=== PATIENT | female | born 1995 | race American Indian/Alaskan Native ===

== ENCOUNTER 2016-12-07 19:09 | Outpatient (CLI) | payer OTHER | END 2016-12-07 21:39 | disposition home or self-care (01) | LOC: TRG 19:09 | PROVIDERS: ATTEND Obstetrics & Gynecology | DX: O26.893 Other specified pregnancy related conditions, third trimester (principal); R10.2 Pelvic and perineal pain; Z3A.36 36 weeks gestation of pregnancy ==

== ENCOUNTER 2017-01-03 10:53 | Inpatient (IN) | payer OTHER ==
[2017-01-03] MEDS ORDERED: LACTATED RINGERS 1,000 ML ONE (15:59)
[2017-01-03 17:55] LABS: Hematocrit 45.8 % (30.3-42.9); Hemoglobin 15.6 gm/dl (10.1-14.3); Mean Corpuscular HGB Conc 34 % (30-34); Mean Corpuscular Hemoglobin 30 pg (28-32); Mean Corpuscular Volume 88 fl (79-97); Platelet Count 175 K/mm3 (140-440); Red Blood Count 5.23 M/mm3 (3.65-5.03); Red Cell Distribution Width 14.2 % (13.2-15.2); White Blood Count 8.6 K/mm3 (4.5-11.0)
[2017-01-03] MEDS ORDERED: LACTATED RINGERS 1,000 ML IV SCH ×2 (18:00→20:00)
[2017-01-03] MEDS ORDERED: SUBLIMAZE IV PRN (19:17)
[2017-01-03] MEDS ORDERED: XYLOCAINE 2% INFILTRATI ONE ×2 (19:17→22:07)
[2017-01-03] MEDS ORDERED: NACL 0.9% 1000 ML 1,000 ML ONE (19:17)
[2017-01-03] MEDS ORDERED: ZOFRAN IV PRN ×2 (19:17→22:21)
[2017-01-03] MEDS ORDERED: ePHEDrine SULFATE IV PRN (19:17)
--- NOTE | 2017-01-03 19:26 | History and Physical Report ---
History of Present Illness Date of examination: 01/03/17 Date of admission: 01/03/17 10:54 Chief complaint: Painful contractions History of present illness: 21-year-old 001 at 40+2 weeks presents via EMS with contractions, she is a [facility] patient. Patient seen in triage and noted to have variable decelerations she was therefore admitted for delivery. course has been unremarkable per patient She is 4/80/-2 station Past History Past Medical History: no pertinent history Past Surgical History: no surgical history Social history: single, full code. denies: smoking, alcohol abuse, prescription drug abuse, IV drug use - Obstetrical History Expected Date of Delivery: 01/01/17 Actual Gestation: 40 Week(s) 2 Day(s) : 2 Medications and Allergies Allergies Allergy/AdvReac Type Severity Reaction Status Date / Time penicillin Allergy Severe Unknown Verified 03/02/15 14:43 Home Medications Medication Instructions Recorded Confirmed Last Taken Type Pnv with Ca,No.72/Iron/FA 1 each PO DAILY 04/13/15 04/13/15 04/11/15 09:00 History [ Plus Multivitamin Tab] Active Meds: Active Medications Ephedrine Sulfate (Ephedrine Sulfate) 10 mg IV Q2M PRN PRN Reason: Hypotension Stop: 01/03/17 19:22 Fentanyl (Sublimaze) 100 mcg IV Q2H PRN PRN Reason: Labor Pain Lactated Ringer's (Lactated Ringers) 1,000 mls @ 125 mls/hr IV DIRECT AARON Lactated Ringer's (Lactated Ringers) 1,000 mls @ 125 mls/hr IV DIRECT AARON Oxytocin/Sodium Chloride (Pitocin/Ns 20 Unit/1000ml Drip) 20 units in 1,000 mls @ 125 mls/hr IV DIRECT AARON Oxytocin/Sodium Chloride (Pitocin/Ns 30 Unit/500ml) 30 units in 500 mls @ 1 mls /hr IV TITR AARON; 1 MILLIUNITS/MIN PRN Reason: Protocol Lidocaine (Xylocaine 2%) 20 ml INFILTRATI ONCE ONE Stop: 01/03/17 19:18 Mineral Oil (Mineral Oil) 30 ml PO QHS PRN PRN Reason: Constipation Ondansetron HCl (Zofran) 4 mg IV Q8H PRN PRN Reason: Nausea And Vomiting Terbutaline Sulfate (Brethine) 0.25 mg SUB-Q ONCE PRN PRN Reason: Hyperstimulation/Hypertonicity Stop: 01/03/17 19:18 Terbutaline Sulfate (Brethine) 0.25 mg IVP ONCE PRN PRN Reason: Hyperstimulation/Hypertonicity Stop: 01/03/17 19:18 Review of Systems Constitutional: no fever, no chills, no sweats, no weakness Cardiovascular: no chest pain, no orthopnea, no syncope, no lightheadedness, no shortness of breath, no dyspnea on exertion, no high blood pressure Respiratory: no cough, no shortness of breath, no dyspnea on exertion, no respiratory infections Gastrointestinal: no abdominal pain, no nausea, no vomiting Genitourinary: contractions, no vaginal bleeding, no vaginal discharge, no leakage of fluid - Vital Signs Vital signs: Vital Signs Temp Resp 98.1 F 18 01/03/17 11:21 01/03/17 11:21 Temp Pulse Resp BP Pulse Ox 98.1 F 89 18 118/66 01/03/17 11:21 01/03/17 19:13 01/03/17 11:21 01/03/17 19:13 - Physical Exam Cardiovascular: Regular rate, Normal S1, Normal S2 Lungs: Positive: Clear to auscultation, Normal air movement Abdomen: Positive: normal appearance, soft. Negative: distention, tenderness, guarding, rigidity Genitourinary (Female): Positive: normal external genitalia Vulva: both: normal Uterus: Positive: enlarged (EFW ~ 3400). Negative: tender Adnexa: both: normal Extremities: Positive: normal - Obstetrical FHR: category 2 Cervical Dilatation: 4 Cervical Effacement Percentage: 60 station: -2 Results Result Diagrams: 01/03/17 Unknown Abnormal lab results 01/03/17 Range/Units Unknown RBC 5.23 H (3.65-5.03) M/mm3 Hgb 15.6 H (10.1-14.3) gm/dl Hct 45.8 H (30.3-42.9) % All other labs normal. Assessment and Plan A: 21-year-old 001 at 40+2 weeks -Cat 2 tracing P: -Admit -Obtain routine labs -Will AROM and start amnioinfusion -Anticipate normal vaginal delivery - Patient Problems (1) 40 weeks gestation of Current Visit: Yes Status: Acute
[2017-01-03] MEDS ORDERED: BRETHINE SUB-Q PRN (19:30)
[2017-01-03] MEDS ORDERED: BRETHINE IVP PRN (19:35)
[2017-01-03] MEDS ORDERED: NACL 0.9% 1000 ML 1,000 ML VG SCH (20:00)
[2017-01-03] MEDS ORDERED: PITOCin/NS 30 UNIT/500ML 30 UNITS/500 ML BAG IV SCH (20:00)
[2017-01-03] MEDS ORDERED: PITOCin/NS 20 UNIT/1000ML DRIP 20 UNITS/1,000 ML BAG IV SCH (20:00)
[2017-01-03 20:24] LABS: Hematocrit 38.6 % (30.3-42.9); Hemoglobin 12.8 gm/dl (10.1-14.3); Mean Corpuscular HGB Conc 33 % (30-34); Mean Corpuscular Hemoglobin 29 pg (28-32); Mean Corpuscular Volume 88 fl (79-97); Platelet Count 176 K/mm3 (140-440); Red Cell Distribution Width 14.1 % (13.2-15.2); White Blood Count 8.8 K/mm3 (4.5-11.0)
--- NOTE | 2017-01-03 21:20 | Progress Note ---
Assessment and Plan A: 21-year-old 001 at 40+2 weeks -Cat 2 tracing - now 6 cm P: -Continue present care -Anticipate normal vaginal delivery - Patient Problems (1) 40 weeks gestation of Current Visit: Yes Status: Acute Subjective - Subjective Date of service: 01/03/17 Interval history: Patient now with occasional variable decelerations, moderate variability and accelerations. She is making cervical change, she is 6 cm -2 station Patient reports: new complaints, loss of fluid, movement normal, contractions, no vaginal bleeding Objective - Vital Signs Vital Signs: Vital Signs - 12hr 01/03/17 01/03/17 01/03/17 11:21 11:24 11:54 Temperature 98.1 F Pulse Rate 94 H 90 Respiratory 18 Rate Blood Pressure 119/81 115/70 01/03/17 01/03/17 01/03/17 12:24 12:41 16:44 Temperature Pulse Rate 90 86 Respiratory Rate Blood Pressure 120/105 119/71 116/68 01/03/17 01/03/17 19:13 19:21 Temperature 98.7 F Pulse Rate 89 Respiratory 20 Rate Blood Pressure 118/66 - Exam FHR: category 2 (patient with moderate variability, occasional variable Decels and accelerations) Cervical Dilatation: 6 station: -2 - Labs Labs: Abnormal Labs 01/03/17 Unknown RBC 5.23 H Hgb 15.6 H Hct 45.8 H Laboratory Results - last 24 hr 01/03/17 01/03/17 01/03/17 16:44 19:55 Unknown WBC 8.8 8.6 RBC 4.40 5.23 H Hgb 12.8 15.6 H Hct 38.6 D 45.8 H MCV 88 88 MCH 29 30 MCHC 33 34 RDW 14.1 14.2 Plt Count 176 175 Blood Type O POSITIVE Antibody Screen TNR VINH Antibody Screen Negative
[2017-01-03] MEDS ORDERED: MINERAL OIL PO PRN (22:00)
--- NOTE | 2017-01-03 22:19 | Procedure Note ---
OB Delivery Note - Delivery Date of Delivery: 01/03/17 Surgeon: TROY AGUILERA Estimated blood loss: 200cc - Vaginal Delivery presentation: vertex Delivery position: OA Intrapartum events: mult.variable deceleratio Delivery induction: none Delivery augmentation: rupture of membranes, pitocin Delivery monitor: external FHT, external uterine Route of delivery: Delivery placenta: spontaneous Delivery cord: 3 umbilical vessels Episiotomy: none Delivery laceration: 2nd degree Delivery repair: vicryl Anesthesia: local - A at 1 minute: 8 at 5 minutes: 9 Infant Gender: Female (Del @ 22:01, weight is 6#7 or 2917 g)
[2017-01-03] MEDS ORDERED: LANSINOH TP PRN ×2 (22:21)
[2017-01-03] MEDS ORDERED: BENADRYL PO PRN (22:21)
[2017-01-03] MEDS ORDERED: MILK OF MAGNESIA PO PRN (22:21)
[2017-01-03] MEDS ORDERED: PHENERGAN PO PRN (22:21)
[2017-01-03] MEDS ORDERED: PHENERGAN PR PRN (22:21)
[2017-01-03] MEDS ORDERED: TUCKS PAD TP PRN (22:21)
[2017-01-03] MEDS ORDERED: NORCO 5/325 PO PRN (22:21)
[2017-01-03] MEDS ORDERED: DULCOLAX PR PRN (22:21)
[2017-01-03] MEDS ORDERED: TYLENOL PO PRN (22:21)
[2017-01-03] MEDS: MOTRIN PO SCH (22:52)
[2017-01-03] MEDS ORDERED: SODIUM CHLORIDE FLUSH SYRINGE 10 ML IV PRN (23:00)
[2017-01-03] MEDS: SENOKOT S PO SCH (23:47)
[2017-01-04] MEDS: MOTRIN PO SCH ×4 (05:40→23:33)
--- NOTE | 2017-01-04 08:19 | Ultrasound Report ---
ULTRASOUND OB LIMITED History: well being Technique: Transabdominal ultrasound with Doppler interrogation. Gestation: Single Position: Cephalic Amniotic Fluid: Normal QUIN = 9.9 cm Heart Rate: 124 BPM
--- NOTE | 2017-01-04 08:19 | Ultrasound Report ---
ULTRASOUND BIOPHYSICAL PROFILE: History: well being Technique: Transabdominal ultrasound with Doppler interrogation. 2 - breathing movements 2 - movements 2 - posture and tone 2 - Qualitative amniotic fluid volume 8 - TOTAL SCORE OF POSSIBLE 8 Heart Rate (bpm) 132
[2017-01-04] MEDS: SENOKOT S PO SCH ×2 (09:30→22:16)
[2017-01-04] MEDS: FEOSOL PO SCH ×2 (09:30→22:16)
[2017-01-04] MEDS ORDERED: PRENATAL VITAMIN PO SCH (10:00)
[2017-01-04 12:39] LABS: Hematocrit 36.6 % (30.3-42.9); Hemoglobin 12.4 gm/dl (10.1-14.3)
--- NOTE | 2017-01-04 13:08 | Progress Note ---
Assessment and Plan A: PP Day #1 Stable P: Follow Routine Orders Depo Provera prior to discharge D/C home in the AM RTO in 6 Weeks Subjective - Subjective Date of service: 01/04/17 Patient reports: appetite normal, voiding normally, pain well controlled, flatus , ambulating normally [place]: in NICU Objective - Vital Signs Latest vital signs: Vital Signs Temp Pulse Resp BP BP Pulse Ox 01/04/17 08:22 98.0 F 18 106/59 01/04/17 04:05 98.2 F 81 20 112/64 01/03/17 23:45 98.5 F 90 20 115/78 01/03/17 23:22 90 100 01/03/17 23:19 81 126/67 01/03/17 23:10 97.7 F 20 01/03/17 23:02 89 140/68 01/03/17 22:59 93 H 151/71 01/03/17 22:52 18 01/03/17 22:44 85 130/80 01/03/17 22:29 80 132/67 01/03/17 22:14 83 130/68 01/03/17 21:58 84 99 01/03/17 21:57 86 138/68 01/03/17 21:53 75 99 01/03/17 21:48 81 100 01/03/17 21:43 81 100 01/03/17 21:41 22 01/03/17 21:38 71 85 01/03/17 21:33 89 100 01/03/17 21:32 88 01/03/17 19:21 98.7 F 20 01/03/17 19:13 89 118/66 01/03/17 16:44 86 116/68 Intake and Output 01/03/17 01/04/17 01/04/17 22:59 06:59 14:59 Intake Total 360 Output Total 1000 Balance -640 Intake: Oral 360 Output: Urine 1000 Void 1000 Other: Total, Intake Amount 120 Total, Output Amount 600 # Voids Void 2 Estimated Blood Loss 200 - Exam Breasts: Present: normal Cardiovascular: Present: Regular rate Lungs: Present: Clear to auscultation, Normal air movement Abdomen: Present: normal appearance, soft, normal bowel sounds Vulva: right: condyloma Uterus: Present: normal, firm, fundal height below umbilicus Extremities: Present: normal - Labs Labs: Abnormal lab results 01/03/17 Range/Units Unknown RBC 5.23 H (3.65-5.03) M/mm3 Hgb 15.6 H (10.1-14.3) gm/dl Hct 45.8 H (30.3-42.9) %
--- NOTE | 2017-01-04 13:10 | Discharge Summary ---
Providers - Providers Date of Admission: 01/03/17 10:54 Date of discharge: 01/05/17 Attending physician: AMBREEN DIAZ MD Primary care physician: AMBREEN DIAZ MD Hospitalization Reason for admission: observation Delivery: Episiotomy: none Laceration: 2nd degree Other procedures: none complications: none Discharge diagnosis: IUP at term delivered baby: female Condition at discharge: Good Disposition: DC-01 TO HOME OR SELFCARE Plan - Discharge Medications Prescriptions: HYDROcodone/APAP 5-325 [[place] 5/325] 1 each PO Q6HR PRN #7 tablet PRN Reason: Pain Ibuprofen [Motrin 600 MG tab] 600 mg PO Q8H PRN #30 tablet PRN Reason: Pain Multivitamin with Iron [Multivitamins with Iron] 1 each PO DAILY #30 tablet - Provider Discharge Summary Activity: routine, no sex for 6 weeks, no heavy lifting 4 weeks, no strenuous exercise Diet: routine Instructions: routine Additional instructions: [] Smoking cessation referral if applicable(refer to patient education folder for contact #) [] Refer to [facility]'s [facility] Booklet Call your doctor immediately for: * Fever > 100.5 * Heavy vaginal bleeding ( >1 pad per hour) * Severe persistent headache * Shortness of breath * Reddened, hot, painful area to leg or breast * Drainage or odor from incision. * Keep incision clean and dry at all times and follow doctor's instructions regarding bathing/showering - Follow up plan Follow up: AMBREEN DIAZ MD [Primary Care Provider] - 6 Weeks
[2017-01-04] MEDS ORDERED: DEPO-PROVERA (CONTRACEPTION) IM NR (13:30)
[2017-01-04] MEDS: COLACE PO SCH ×2 (17:39→22:17)
[2017-01-05] MEDS: MOTRIN PO SCH (05:52)
[2017-01-05 11:26] VITALS: BP 107/68
== END 2017-01-05 10:30 | disposition home or self-care (01) | DRG 775 ==
LOC: TRG 10:53 → LD 10:54 → OB 23:40
PROVIDERS: ADMIT Obstetrics & Gynecology; ATTEND Obstetrics & Gynecology
PROC: 10E0XZZ Delivery of Products of Conception, External Approach (ICD-10-PCS; principal; 2017-01-03)
PROC: 0KQM0ZZ Repair Perineum Muscle, Open Approach (ICD-10-PCS; 2017-01-03)
DX: O76 Abnormality in fetal heart rate and rhythm complicating labor and delivery (principal); O70.1 Second degree perineal laceration during delivery; Z3A.40 40 weeks gestation of pregnancy; Z37.0 Single live birth; Z88.0 Allergy status to penicillin
CPT/HCPCS: 36415; 76815; 76819; 85014; 85018; 85027; 86850; 86900; 86901; J2590; J3010; J7030; J7120

== ENCOUNTER 2017-04-22 02:59 | Emergency (ER) | payer SELFPAY ==
[2017-04-22 06:03] LABS: Bilirubin,Urine NEG (Negative); Blood,Urine NEG (Negative); Color,Urine Straw (Yellow); Nitrite,Urine NEG (Negative); Protein,Urine <15 mg/dL mg/dL (Negative); WBC,Urine < 1.0 /HPF (0.0-6.0)
[2017-04-22 06:04] LABS: HCG Qualitative,Urine Negative (Negative)
[2017-04-22 13:02] LABS: Basophils % (Auto) 0.7 % (0.0-1.8); Eosinophils # (Auto) 0.1 K/mm3 (0.0-0.4); Eosinophils % (Auto) 1.8 % (0.0-4.3); Hematocrit 36.3 % (30.3-42.9); Hemoglobin 11.8 gm/dl (10.1-14.3); Lymphocytes # (Auto) 2.1 K/mm3 (1.2-5.4); Lymphocytes % (Auto) 35.4 % (13.4-35.0); Mean Corpuscular HGB Conc 33 % (30-34); Mean Corpuscular Hemoglobin 28 pg (28-32); Mean Corpuscular Volume 85 fl (79-97); Monocytes # (Auto) 0.3 K/mm3 (0.0-0.8); Monocytes % (Auto) 5.6 % (0.0-7.3); Platelet Count 224 K/mm3 (140-440); Red Blood Count 4.28 M/mm3 (3.65-5.03); Red Cell Distribution Width 14.4 % (13.2-15.2)
[2017-04-22 13:08] LABS: BUN/Creatinine Ratio 20; Blood Urea Nitrogen 12 mg/dL (7-17); Calcium 8.8 mg/dL (8.4-10.2); Hemolysis Index 6; Lipase 27 units/L (13-60)
--- NOTE | 2017-04-22 13:25 | Emergency Department Report ---
ED Abdominal Pain HPI - General Chief Complaint: Abdominal Pain Stated Complaint: ABD PAIN Time Seen by Provider: 04/22/17 12:25 Source: patient Mode of arrival: Ambulatory Limitations: No Limitations - History of Present Illness Initial Comments: 21F PMH Asthma p/w c/o 3 months of upper abd pain , intermittent. States pain is intermittent and comes and goes no association with eating, visibly pointing to her epigastric region above the umbilicus. Patient denies fevers chills nausea vomiting dysuria or vaginal discharge or hematuria flank pain. Patient is concerned that she may be . Patient is awake alert and oriented 3 not in acute distress fully lucid and ambulatory conversant. Accompanied by grandmother at bedside. She states she has not followed up as an outpatient with [facility] or primary care due to insurance issues. Patient states she primarily came today because she wants a test MD Complaint: abdominal pain Onset/Timin -: month(s) Location: periumbilical Migration to: periumbilical Severity: moderate Consistency: constant Improves With: nothing Worsens With: nothing - Related Data Home Medications Medication Instructions Recorded Confirmed Last Taken Pnv with Ca,No.72/Iron/FA 1 each PO DAILY 04/13/15 01/03/17 3 Days Ago [ Plus Multivitamin Tab] ~12/31/16 Previous Rx's Medication Instructions Recorded Last Taken Type HYDROcodone/APAP 5-325 [[place] 1 each PO Q6HR PRN #7 tablet 01/03/17 Unknown Rx 5/325] Ibuprofen [Motrin 600 MG tab] 600 mg PO Q8H PRN #30 tablet 01/03/17 Unknown Rx Multivitamin with Iron 1 each PO DAILY #30 tablet 01/03/17 Unknown Rx [Multivitamins with Iron] Acetaminophen [Acetaminophen TAB] 500 mg PO Q6HR PRN #30 tablet 04/22/17 Unknown Rx Famotidine [Pepcid] 20 mg PO BID PRN #30 tablet 04/22/17 Unknown Rx Allergies Allergy/AdvReac Type Severity Reaction Status Date / Time penicillin Allergy Severe Unknown Verified 03/02/15 14:43 ED Review of Systems ROS: Stated complaint: ABD PAIN Other details as noted in HPI Constitutional: denies: chills, fever Eyes: denies: eye pain, eye discharge, vision change ENT: denies: ear pain, throat pain Respiratory: denies: cough, shortness of breath, wheezing Cardiovascular: denies: chest pain, palpitations Endocrine: no symptoms reported Gastrointestinal: denies: abdominal pain, nausea, diarrhea Genitourinary: denies: urgency, dysuria, discharge Musculoskeletal: denies: back pain, joint swelling, arthralgia Skin: denies: rash, lesions Neurological: denies: headache, weakness, paresthesias Psychiatric: denies: anxiety, depression Hematological/Lymphatic: denies: easy bleeding, easy bruising ED Past Medical Hx - Past Medical History Hx Hypertension: No Hx Congestive Heart Failure: No Hx Diabetes: No Hx Deep Vein Thrombosis: No Hx Renal Disease: No Hx Sickle Cell Disease: No Hx Seizures: No Hx Asthma: No Hx COPD: No Hx HIV: No - Surgical History Past Surgical History?: No Additional Surgical History: left foot - Social History Smoking Status: Current Every Day Smoker Substance Use Type: None - Medications Home Medications: Home Medications Medication Instructions Recorded Confirmed Last Taken Type Pnv with Ca,No.72/Iron/FA 1 each PO DAILY 04/13/15 01/03/17 3 Days Ago History [ Plus Multivitamin Tab] ~12/31/16 HYDROcodone/APAP 5-325 [[place] 1 each PO Q6HR PRN #7 tablet 01/03/17 Unknown Rx 5/325] Ibuprofen [Motrin 600 MG tab] 600 mg PO Q8H PRN #30 tablet 01/03/17 Unknown Rx Multivitamin with Iron 1 each PO DAILY #30 tablet 01/03/17 Unknown Rx [Multivitamins with Iron] Acetaminophen [Acetaminophen TAB] 500 mg PO Q6HR PRN #30 tablet 04/22/17 Unknown Rx Famotidine [Pepcid] 20 mg PO BID PRN #30 tablet 04/22/17 Unknown Rx ED Physical Exam - General Limitations: No Limitations General appearance: alert, in no apparent distress - Head Head exam: Present: atraumatic, normocephalic - Eye Eye exam: Present: normal appearance, PERRL, EOMI - ENT ENT exam: Present: mucous membranes moist - Neck Neck exam: Present: normal inspection, full ROM - Respiratory Respiratory exam: Present: normal lung sounds bilaterally. Absent: respiratory distress - Cardiovascular Cardiovascular Exam: Present: regular rate, normal rhythm. Absent: systolic murmur, diastolic murmur, rubs, gallop - GI/Abdominal GI/Abdominal exam: Present: soft (abdomen soft nontender nondistended on clinical exam no tenderness at McBurney's point no flank tenderness or CVA tenderness on exam), normal bowel sounds - Extremities Exam Extremities exam: Present: normal inspection - Back Exam Back exam: Present: normal inspection - Neurological Exam Neurological exam: Present: alert, oriented X3, CN II-XII intact, normal gait - Psychiatric Psychiatric exam: Present: normal affect, normal mood - Skin Skin exam: Present: warm, dry, intact, normal color. Absent: rash ED Course Vital Signs 04/22/17 04:19 Temperature 98.7 F Pulse Rate 62 Respiratory 18 Rate Blood Pressure 131/68 [Left] ED Medical Decision Making - Lab Data Result diagrams: 04/22/17 12:39 04/22/17 12:39 - Medical Decision Making A/P: Chronic upper abdominal pain, concern for , possible GERD 1-antacids, Tylenol when necessary 2-labs unremarkable, patient is not 3-follow-up with DENTAL SECRETARY Critical care attestation.: If time is entered above; I have spent that time in minutes in the direct care of this critically ill patient, excluding procedure time. ED Disposition Clinical Impression: test negative Disposition: DC-01 TO HOME OR SELFCARE Is pt being admited?: No Does the pt Need Aspirin: No Condition: Stable Instructions: Abdominal Pain (ED) Prescriptions: Acetaminophen [Acetaminophen TAB] 500 mg PO Q6HR PRN #30 tablet PRN Reason: Pain Famotidine [Pepcid] 20 mg PO BID PRN #30 tablet PRN Reason: Indigestion Referrals: [facility] [Outside] - 3-5 Days [facility] [Outside] - 3-5 Days Forms: Accompanied Note, Work/School Release Form(ED) Time of Disposition: 13:27
[2017-04-22 13:40] VITALS: BP 123/74
== END 2017-04-22 13:40 | disposition home or self-care (01) ==
LOC: ED 02:59
DX: R10.10 Upper abdominal pain, unspecified (principal); F17.200 Nicotine dependence, unspecified, uncomplicated; Z88.0 Allergy status to penicillin
CPT/HCPCS: 36415; 80048; 81001; 81025; 82140; 82150; 83690; 85025; 99283

== ENCOUNTER 2018-04-02 14:09 | Emergency (ER) | payer OTHER ==
[2018-04-02 14:20] VITALS: BP 106/78
[2018-04-02] MEDS ORDERED: XYLOCAINE 2% INFILTRATI ONE (16:00)
[2018-04-02] MEDS ORDERED: ULTRAM PO ONE (16:00)
--- NOTE | 2018-04-02 16:00 | Emergency Department Report ---
Abscess Boil HPI - HPI Chief Complaint: Skin/Abscess/Foreign Body Stated Complaint: UNDERARM PAIN/EXTREME Time Seen by Provider: 04/02/18 15:55 Duration: 3 Days Location: Upper Extremity (left axillary) Severity: Severe History: Yes Pain, Yes Previous History, No Fever, No Purulent Drainage, No Numbness, No Foreign Body, No Insect Bite HPI: This is a 22-year-old female who presents with a painful nodule to the left axilla for 3 days. Patient states she is applying Epsom salt, alcohol, and warm compresses with no improvement pain or swelling. She reports a past history of abscess to left axilla. Patient states he usually calm and go never requiring drainage. Past medical history of hyperglycemia. She denies insect bite, fever, drainage, chest pain, shortness of breath, or recent injury. Home Medications: Home Medications Medication Instructions Recorded Confirmed Last Taken Pnv with Ca,No.72/Iron/FA 1 each PO DAILY 04/13/15 01/03/17 3 Days Ago [ Plus Multivitamin Tab] ~12/31/16 Previous Rx's Medication Instructions Recorded Last Taken Type HYDROcodone/APAP 5-325 [[place] 1 each PO Q6HR PRN #7 tablet 01/03/17 Unknown Rx 5/325] Multivitamin with Iron 1 each PO DAILY #30 tablet 01/03/17 Unknown Rx [Multivitamins with Iron] Acetaminophen [Acetaminophen TAB] 500 mg PO Q6HR PRN #30 tablet 04/22/17 Unknown Rx Famotidine [Pepcid] 20 mg PO BID PRN #30 tablet 04/22/17 Unknown Rx Triamcinolone Acetonide 15 gm TP TID #15 oint...g. 02/15/18 Unknown Rx [Triamcinolone Acetonide Oint 0.5%] Ibuprofen [Motrin 600 MG tab] 600 mg PO Q8H PRN #30 tablet 03/25/18 Unknown Rx guaiFENesin [Robitussin] 200 mg PO Q6HR #20 tablet 03/25/18 Unknown Rx Ibuprofen [Motrin 800 MG tab] 800 mg PO Q8HR PRN #12 tablet 04/02/18 Unknown Rx Sulfamethoxazole/Trimethoprim 1 each PO BID #14 tablet 04/02/18 Unknown Rx [Bactrim DS TAB] Allergies/Adverse Reactions: Allergies Allergy/AdvReac Type Severity Reaction Status Date / Time penicillin Allergy Severe Unknown Verified 03/02/15 14:43 ED Review of Systems ROS: Stated complaint: UNDERARM PAIN/EXTREME Other details as noted in HPI Constitutional: denies: chills, fever Respiratory: denies: cough, shortness of breath, wheezing Cardiovascular: denies: chest pain, palpitations Gastrointestinal: denies: abdominal pain, nausea, diarrhea Skin: lesions (abscess to the left axilla). denies: rash Neurological: denies: headache, weakness, paresthesias Psychiatric: denies: anxiety, depression ED Past Medical Hx - Past Medical History Previous Medical History?: No Hx Hypertension: No Hx Congestive Heart Failure: No Hx Diabetes: No Hx Deep Vein Thrombosis: No Hx Renal Disease: No Hx Sickle Cell Disease: No Hx Seizures: No Hx Asthma: No Hx COPD: No Hx HIV: No Additional medical history: hyperglycemia - Surgical History Additional Surgical History: left foot - Social History Smoking Status: Current Every Day Smoker Substance Use Type: None - Medications Home Medications: Home Medications Medication Instructions Recorded Confirmed Last Taken Type Pnv with Ca,No.72/Iron/FA 1 each PO DAILY 04/13/15 01/03/17 3 Days Ago History [ Plus Multivitamin Tab] ~12/31/16 HYDROcodone/APAP 5-325 [[place] 1 each PO Q6HR PRN #7 tablet 01/03/17 Unknown Rx 5/325] Multivitamin with Iron 1 each PO DAILY #30 tablet 01/03/17 Unknown Rx [Multivitamins with Iron] Acetaminophen [Acetaminophen TAB] 500 mg PO Q6HR PRN #30 tablet 04/22/17 Unknown Rx Famotidine [Pepcid] 20 mg PO BID PRN #30 tablet 04/22/17 Unknown Rx Triamcinolone Acetonide 15 gm TP TID #15 oint...g. 02/15/18 Unknown Rx [Triamcinolone Acetonide Oint 0.5%] Ibuprofen [Motrin 600 MG tab] 600 mg PO Q8H PRN #30 tablet 03/25/18 Unknown Rx guaiFENesin [Robitussin] 200 mg PO Q6HR #20 tablet 03/25/18 Unknown Rx Ibuprofen [Motrin 800 MG tab] 800 mg PO Q8HR PRN #12 tablet 04/02/18 Unknown Rx Sulfamethoxazole/Trimethoprim 1 each PO BID #14 tablet 04/02/18 Unknown Rx [Bactrim DS TAB] ED Abscess Boil Physical Exam - Exam General: Vital signs noted. No distress. Alert and acting appropriately. Front/Back of Body, Lg (Color): 1 - 2 cm erythematous nodule to left axilla, tenderness, fluctuant, no surrounding cellulitis or drainage. Size: 2 cm Exam: Yes Tenderness, Yes Fluctuance, Yes Normal Neurologic Exam, Yes Normal Circulation, No Surrounding Cellulites/Erythema, No Lymphangitis, No Crepitation, No Heart Murmur I & D Note - I & D Note I & D Note: The area was prepared and draped in the usual, sterile manner. The site was anesthetized with 2% lidocaine without epinephrine. A linear incision along the local skin lines was made and the purulent material expressed. The abcess was explored thoroughly and sequestered pockets were opened. Bleeding was minimal. Packing: idodoform. Followup: The patient tolerated the procedure well without complications. Standard post-procedure care was explained and return precautions are given. ED Course Vital Signs 04/02/18 14:17 Temperature 98.2 F Pulse Rate 80 Respiratory 16 Rate Blood Pressure 106/78 O2 Sat by Pulse 100 Oximetry Critical care attestation.: If time is entered above; I have spent that time in minutes in the direct care of this critically ill patient, excluding procedure time. ED Medical Decision Making - Medical Decision Making This is a 22 y.o. female that presents with a painful abscess to left axilla for 3 days. Past history of prior abscess to left axilla. Patient is stable and examined by me. Physical assessment of 2 cm fluctuance nodule to left axilla. No acute signs of distress noted. Given tramadol 50 mg po once in ER. I&D refer to note. Discussed plan to start bactrim DS and ibuprofen with patient. Educated patient and spouse on follow up plan to have packing removed and wound reassessed in 2-3 days. Patient agrees to ED plan of care. Discharged home and follow up with PCP in 2-3 days. ED Disposition Clinical Impression: Abscess of axilla, left Disposition: DC-01 TO HOME OR SELFCARE Is pt being admited?: No Does the pt Need Aspirin: No Condition: Stable Instructions: Abscess Incision and Drainage (ED), Abscess (ED) Additional Instructions: Keep packing in place for 2-3 days. Return to ER or f/u with PCP to have packing removed and wound reassessed. Complete full round of bactrim DS antibiotic as prescribed. A drink alcohol while taking antibiotics and for 24 hours of completion. Follow up with PCP or ER in 2-3 days. Return to ER if foul smelling discharge, swelling, or severe pain to wound. Prescriptions: Ibuprofen [Motrin 800 MG tab] 800 mg PO Q8HR PRN #12 tablet PRN Reason: Pain , Severe (7-10) Sulfamethoxazole/Trimethoprim [Bactrim DS TAB] 1 each PO BID #14 tablet Referrals: [facility] [Outside] - 3-5 Days [facility] [Outside] - 3-5 Days [facility] [Provider Group] - 3-5 Days Forms: Accompanied Note, Work/School Release Form(ED) Time of Disposition: 16:43
== END 2018-04-02 16:58 | disposition home or self-care (01) ==
LOC: ED 14:09
DX: L02.412 Cutaneous abscess of left axilla (principal); F17.200 Nicotine dependence, unspecified, uncomplicated
CPT/HCPCS: 99282

== ENCOUNTER 2018-04-05 12:00 | Emergency (ER) | payer OTHER ==
--- NOTE | 2018-04-05 15:01 | Emergency Department Report ---
Addendum entered and electronically signed by PATY DAMON FNP 04/05/18 15:23: Correction to skin: half a centimeter wound to the left axilla with iodoform packing, tenderness, no active drainage, no surrounding cellulitis Original Note: ED Recheck HPI - General Chief Complaint: Laceration/Recheck/Suture Stated Complaint: PACKING REMOVED Source: patient Mode of arrival: Ambulatory Limitations: No Limitations - History of Present Illness Initial Comments: This is a 22-year-old [place] female presents for reevaluation. Patient's had a I&D the left axilla 2 days ago and instructed to return for packing removal. Patient denies new symptoms. Reports tenderness to area and discomfort. She is requesting pain medication to help with discomfort. States ibuprofen is not controlling pain. She is changing gauze dressing twice a day. She denies fever, purulent discharge, numbness or tingling. Complaint: wound re-check Onset/Timin -: days(s) Initial Visit For: abscess Returns Today for: wound recheck Symptoms Since Prior Visit: no new symptoms Context: planned re-check Associated Symptoms: none Treatments Prior to Arrival: dressings, Given Antibiotics on - Related Data Home Medications Medication Instructions Recorded Confirmed Last Taken Pnv with Ca,No.72/Iron/FA 1 each PO DAILY 04/13/15 01/03/17 3 Days Ago [ Plus Multivitamin Tab] ~12/31/16 Previous Rx's Medication Instructions Recorded Last Taken Type HYDROcodone/APAP 5-325 [[place] 1 each PO Q6HR PRN #7 tablet 01/03/17 Unknown Rx 5/325] Multivitamin with Iron 1 each PO DAILY #30 tablet 01/03/17 Unknown Rx [Multivitamins with Iron] Acetaminophen [Acetaminophen TAB] 500 mg PO Q6HR PRN #30 tablet 04/22/17 Unknown Rx Famotidine [Pepcid] 20 mg PO BID PRN #30 tablet 04/22/17 Unknown Rx Triamcinolone Acetonide 15 gm TP TID #15 oint...g. 02/15/18 Unknown Rx [Triamcinolone Acetonide Oint 0.5%] Ibuprofen [Motrin 600 MG tab] 600 mg PO Q8H PRN #30 tablet 03/25/18 Unknown Rx guaiFENesin [Robitussin] 200 mg PO Q6HR #20 tablet 03/25/18 Unknown Rx Ibuprofen [Motrin 800 MG tab] 800 mg PO Q8HR PRN #12 tablet 04/02/18 Unknown Rx Sulfamethoxazole/Trimethoprim 1 each PO BID #14 tablet 04/02/18 Unknown Rx [Bactrim DS TAB] traMADol [Ultram 50 MG tab] 50 mg PO Q6HR PRN #10 tablet 04/05/18 Unknown Rx Allergies Allergy/AdvReac Type Severity Reaction Status Date / Time penicillin Allergy Severe Unknown Verified 03/02/15 14:43 ED Review of Systems ROS: Stated complaint: PACKING REMOVED Other details as noted in HPI Constitutional: denies: chills, fever Respiratory: denies: cough, shortness of breath, wheezing Cardiovascular: denies: chest pain, palpitations Skin: other (wound with packing to right axilla). denies: rash, lesions Neurological: denies: headache, weakness, paresthesias Psychiatric: denies: anxiety, depression ED Past Medical Hx - Past Medical History Hx Hypertension: No Hx Congestive Heart Failure: No Hx Diabetes: No Hx Deep Vein Thrombosis: No Hx Renal Disease: No Hx Sickle Cell Disease: No Hx Seizures: No Hx Asthma: No Hx COPD: No Hx HIV: No Additional medical history: hyperglycemia - Surgical History Additional Surgical History: left foot - Social History Smoking Status: Current Every Day Smoker Substance Use Type: Alcohol - Medications Home Medications: Home Medications Medication Instructions Recorded Confirmed Last Taken Type Pnv with Ca,No.72/Iron/FA 1 each PO DAILY 04/13/15 01/03/17 3 Days Ago History [ Plus Multivitamin Tab] ~12/31/16 HYDROcodone/APAP 5-325 [[place] 1 each PO Q6HR PRN #7 tablet 01/03/17 Unknown Rx 5/325] Multivitamin with Iron 1 each PO DAILY #30 tablet 01/03/17 Unknown Rx [Multivitamins with Iron] Acetaminophen [Acetaminophen TAB] 500 mg PO Q6HR PRN #30 tablet 04/22/17 Unknown Rx Famotidine [Pepcid] 20 mg PO BID PRN #30 tablet 04/22/17 Unknown Rx Triamcinolone Acetonide 15 gm TP TID #15 oint...g. 02/15/18 Unknown Rx [Triamcinolone Acetonide Oint 0.5%] Ibuprofen [Motrin 600 MG tab] 600 mg PO Q8H PRN #30 tablet 03/25/18 Unknown Rx guaiFENesin [Robitussin] 200 mg PO Q6HR #20 tablet 03/25/18 Unknown Rx Ibuprofen [Motrin 800 MG tab] 800 mg PO Q8HR PRN #12 tablet 04/02/18 Unknown Rx Sulfamethoxazole/Trimethoprim 1 each PO BID #14 tablet 04/02/18 Unknown Rx [Bactrim DS TAB] traMADol [Ultram 50 MG tab] 50 mg PO Q6HR PRN #10 tablet 04/05/18 Unknown Rx ED Physical Exam - General Limitations: No Limitations General appearance: alert, in no apparent distress - Respiratory Respiratory exam: Present: normal lung sounds bilaterally. Absent: respiratory distress - Cardiovascular Cardiovascular Exam: Present: regular rate, normal rhythm. Absent: systolic murmur, diastolic murmur, rubs, gallop - GI/Abdominal GI/Abdominal exam: Present: soft, normal bowel sounds - Neurological Exam Neurological exam: Present: alert, oriented X3 - Psychiatric Psychiatric exam: Present: normal affect, normal mood - Skin Skin exam: Present: warm, dry, normal color, other (half a centimeter wound to the right axilla with iodoform packing, tenderness, no active drainage). Absent: intact, rash ED Course Vital Signs 04/05/18 12:05 Temperature 98.1 F Pulse Rate 75 Respiratory 18 Rate Blood Pressure 111/66 O2 Sat by Pulse 100 Oximetry ED Recheck MDM - Differential Diagnosis Wound Recheck - Medical Decision Making This is a 22 y.o. female to have packing removed from left axilla wound. I&D was performed in this emergency room 2 days ago. Patient is stable and examined by me. Physical assessment of well healing wound to left axilla. No acute signs of distress noted. The iodoform packing was removed with forceps without difficulty. The wound was cleaned with normal saline and 4 x 4 gauze with surgical tape applied. I advised her to use triple antibiotic ointment in 4-5 days. Start tramadol for pain. Discharged home and follow up with PCP in 2-3 days. Critical care attestation.: If time is entered above; I have spent that time in minutes in the direct care of this critically ill patient, excluding procedure time. ED Disposition Clinical Impression: Encounter for evaluation of wound, Abscess of axilla, left Disposition: DC- TO HOME OR SELFCARE Is pt being admited?: No Does the pt Need Aspirin: No Condition: Stable Instructions: Acute Wound Care (ED) Additional Instructions: Use triple antibiotic ointment 3-5 days. Follow-up with dermatology. Follow up with PCP in 2-3 days. Return to ER if redness, wound reopens, drainage, and pain. Prescriptions: traMADol [Ultram 50 MG tab] 50 mg PO Q6HR PRN #10 tablet PRN Reason: Pain Referrals: [facility] [Provider Group] - 3-5 Days Nirmal Manzano [Other] - 3-5 Days Forms: Work/School Release Form(ED), Accompanied Note Time of Disposition: 15:17
== END 2018-04-05 15:33 | disposition home or self-care (01) ==
LOC: ED 12:00
CPT/HCPCS: 99282

== ENCOUNTER 2019-03-18 07:51 | Emergency (ER) | payer MEDICAID, OTHER ==
[2019-03-18] MEDS ORDERED: SODIUM CHLORIDE 0.9% 1000 ML 1,000 ML IV ONE (08:32)
[2019-03-18] MEDS ORDERED: ONDANSETRON 4 MG/2 ML INJ IV ONE (08:32)
[2019-03-18] MEDS ORDERED: DICYCLOMINE 20 MG TAB PO ONE (08:32)
[2019-03-18] MEDS ORDERED: MORPHINE 4 MG/1 ML INJ IV ONE (08:32)
[2019-03-18 09:16] LABS: Bacteria,Urine 1+ /HPF (Negative); Bilirubin,Urine NEG (Negative); Blood,Urine NEG (Negative); Color,Urine Yellow (Yellow); Mucus,Urine 2+ /HPF; Protein,Urine <15 mg/dL mg/dL (Negative); Urobilinogen,Urine < 2.0 mg/dL (<2.0)
[2019-03-18 09:20] LABS: Alanine Aminotransferase 12 units/L (7-56); Albumin 4.1 g/dL (3.9-5); BUN/Creatinine Ratio 14; Blood Urea Nitrogen 7 mg/dL (7-17); Calcium 8.7 mg/dL (8.4-10.2); Hemolysis Index 0
[2019-03-18 09:24] LABS: Basophils % (Auto) 0.4 % (0.0-1.8); Eosinophils % (Auto) 0.5 % (0.0-4.3); Hematocrit 23.3 % (30.3-42.9); Hemoglobin 6.9 gm/dl (10.1-14.3); Lymphocytes # (Auto) 1.4 K/mm3 (1.2-5.4); Lymphocytes % (Auto) 22.1 % (13.4-35.0); Mean Corpuscular HGB Conc 30 % (30-34); Mean Corpuscular Volume 54 fl (79-97); Monocytes # (Auto) 0.7 K/mm3 (0.0-0.8); Monocytes % (Auto) 10.3 % (0.0-7.3); Platelet Count 244 K/mm3 (140-440); Red Blood Count 4.29 M/mm3 (3.65-5.03); Red Cell Distribution Width 21.5 % (13.2-15.2)
--- NOTE | 2019-03-18 09:27 | Emergency Department Report ---
ED Abdominal Pain HPI - General Chief Complaint: Abdominal Pain Stated Complaint: ABD PAIN Time Seen by Provider: 03/18/19 08:31 Source: patient Mode of arrival: Ambulatory Limitations: No Limitations - History of Present Illness Initial Comments: This is a 23-year-old female nontoxic, well nourished in appearance, no acute signs of distress presents to the ED with c/o of left pelvic pain x4 days. Patient denies any vomiting or nausea. Denies any upper abdominal pain. Patient describes pelvic pain as cramping and aching with level of 8/10. Hailey ent denies chest pain, short of breath, fever, chills, headache, stiff neck, numbness or tingling. Patient denies any diarrhea or constipation. Patient denies any recent travels. Patient stated allergies to PCN. Patient denies any significant PMH. MD Complaint: other (left pelvic pain) -: days(s) (4) Radiation: none Severity: mild Severity scale (0 -10): 8 Quality: cramping Consistency: constant Improves With: nothing Worsens With: nothing Associated Symptoms: denies other symptoms. denies: nausea, vomiting, diarrhea, fever, chills, constipation, dysuria, hematemesis, hematochezia, melena, hematuria, anorexia, syncope - Related Data Home Medications Medication Instructions Recorded Confirmed Last Taken Pnv with Ca,No.72/Iron/FA 1 each PO DAILY 04/13/15 01/03/17 3 Days Ago [ Plus Multivitamin Tab] ~12/31/16 Previous Rx's Medication Instructions Recorded Last Taken Type HYDROcodone/APAP 5-325 [[place] 1 each PO Q6HR PRN #7 tablet 01/03/17 Unknown Rx 5/325] Multivitamin with Iron 1 each PO DAILY #30 tablet 01/03/17 Unknown Rx [Multivitamins with Iron] Acetaminophen [Acetaminophen TAB] 500 mg PO Q6HR PRN #30 tablet 04/22/17 Unknown Rx Famotidine [Pepcid] 20 mg PO BID PRN #30 tablet 04/22/17 Unknown Rx Triamcinolone Acetonide 15 gm TP TID #15 oint...g. 02/15/18 Unknown Rx [Triamcinolone Acetonide Oint 0.5%] Ibuprofen [Motrin 600 MG tab] 600 mg PO Q8H PRN #30 tablet 03/25/18 Unknown Rx guaiFENesin [Robitussin] 200 mg PO Q6HR #20 tablet 03/25/18 Unknown Rx Ibuprofen [Motrin 800 MG tab] 800 mg PO Q8HR PRN #12 tablet 04/02/18 Unknown Rx Sulfamethoxazole/Trimethoprim 1 each PO BID #14 tablet 04/02/18 Unknown Rx [Bactrim DS TAB] traMADoL [Ultram 50 MG tab] 50 mg PO Q6HR PRN #10 tablet 04/05/18 Unknown Rx Ibuprofen [Motrin] 600 mg PO Q8H PRN #20 tablet 03/18/19 Unknown Rx Sulfamethoxazole/Trimethoprim 1 each PO BID #14 tablet 03/18/19 Unknown Rx [Bactrim DS TAB] metroNIDAZOLE [Flagyl] 500 mg PO Q12HR #14 tab 03/18/19 Unknown Rx Allergies Allergy/AdvReac Type Severity Reaction Status Date / Time penicillin Allergy Severe Unknown Verified 03/02/15 14:43 ED Review of Systems ROS: Stated complaint: ABD PAIN Other details as noted in HPI Constitutional: denies: chills, fever Eyes: denies: eye pain, eye discharge, vision change ENT: denies: ear pain, throat pain Respiratory: denies: cough, shortness of breath, wheezing Cardiovascular: denies: chest pain, palpitations Endocrine: no symptoms reported Gastrointestinal: denies: abdominal pain, nausea, vomiting, diarrhea, constipation, hematemesis, melena, hematochezia Genitourinary: other (left pelvic pain). denies: urgency, dysuria, discharge Musculoskeletal: denies: back pain, joint swelling, arthralgia Skin: denies: rash, lesions Neurological: denies: headache, weakness, paresthesias Psychiatric: denies: anxiety, depression Hematological/Lymphatic: denies: easy bleeding, easy bruising ED Past Medical Hx - Past Medical History Previous Medical History?: No Hx Hypertension: No Hx Congestive Heart Failure: No Hx Diabetes: No Hx Deep Vein Thrombosis: No Hx Renal Disease: No Hx Sickle Cell Disease: No Hx Seizures: No Hx Asthma: No Hx COPD: No Hx HIV: No Additional medical history: hyperglycemia - Surgical History Past Surgical History?: Yes Additional Surgical History: Left foot - Social History Smoking Status: Current Every Day Smoker - Medications Home Medications: Home Medications Medication Instructions Recorded Confirmed Last Taken Type Pnv with Ca,No.72/Iron/FA 1 each PO DAILY 04/13/15 01/03/17 3 Days Ago History [ Plus Multivitamin Tab] ~12/31/16 HYDROcodone/APAP 5-325 [[place] 1 each PO Q6HR PRN #7 tablet 01/03/17 Unknown Rx 5/325] Multivitamin with Iron 1 each PO DAILY #30 tablet 01/03/17 Unknown Rx [Multivitamins with Iron] Acetaminophen [Acetaminophen TAB] 500 mg PO Q6HR PRN #30 tablet 04/22/17 Unknown Rx Famotidine [Pepcid] 20 mg PO BID PRN #30 tablet 04/22/17 Unknown Rx Triamcinolone Acetonide 15 gm TP TID #15 oint...g. 02/15/18 Unknown Rx [Triamcinolone Acetonide Oint 0.5%] Ibuprofen [Motrin 600 MG tab] 600 mg PO Q8H PRN #30 tablet 03/25/18 Unknown Rx guaiFENesin [Robitussin] 200 mg PO Q6HR #20 tablet 03/25/18 Unknown Rx Ibuprofen [Motrin 800 MG tab] 800 mg PO Q8HR PRN #12 tablet 04/02/18 Unknown Rx Sulfamethoxazole/Trimethoprim 1 each PO BID #14 tablet 04/02/18 Unknown Rx [Bactrim DS TAB] traMADoL [Ultram 50 MG tab] 50 mg PO Q6HR PRN #10 tablet 04/05/18 Unknown Rx Ibuprofen [Motrin] 600 mg PO Q8H PRN #20 tablet 03/18/19 Unknown Rx Sulfamethoxazole/Trimethoprim 1 each PO BID #14 tablet 03/18/19 Unknown Rx [Bactrim DS TAB] metroNIDAZOLE [Flagyl] 500 mg PO Q12HR #14 tab 03/18/19 Unknown Rx ED Physical Exam - General Limitations: No Limitations General appearance: alert, in no apparent distress - Head Head exam: Present: atraumatic, normocephalic - Neck Neck exam: Present: normal inspection, full ROM. Absent: tenderness, meningismus, lymphadenopathy - Respiratory Respiratory exam: Present: normal lung sounds bilaterally. Absent: respiratory distress, wheezes, rales, rhonchi, stridor, chest wall tenderness, accessory muscle use, decreased breath sounds, prolonged expiratory - Cardiovascular Cardiovascular Exam: Present: regular rate, normal rhythm, normal heart sounds. Absent: bradycardia, tachycardia, irregular rhythm, systolic murmur, diastolic murmur, rubs, gallop - GI/Abdominal GI/Abdominal exam: Present: soft, normal bowel sounds. 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 Absent: erythema, swelling, lesions, lacerations, ecchymosis, bleeding Speculum exam: Present: cervical discharge, other (patient admitting clerk [facility] lumber inspector present during exam). Absent: erythema, vaginal discharge, vaginal bleeding, foreign body, tissue, laceration Bi-manual exam: Present: cervical motion tendernes, other (patient admitting clerk [facility] lumber inspector present during exam). Absent: adnexal tenderness, adnexal mass, uterine enlargement, uterine tenderness - Extremities Exam Extremities exam: Present: normal inspection, full ROM - Back Exam Back exam: Present: normal inspection, full ROM. Absent: tenderness, CVA ten derness (R), CVA tenderness (L), muscle spasm, paraspinal tenderness, vertebral tenderness, rash noted - Neurological Exam Neurological exam: Present: alert, oriented X3, normal gait - Psychiatric Psychiatric exam: Present: normal affect, normal mood - Skin Skin exam: Present: warm, dry, intact, normal color. Absent: rash ED Course Vital Signs 03/18/19 08:03 Temperature 99.1 F Pulse Rate 89 Respiratory 16 Rate Blood Pressure 115/54 O2 Sat by Pulse 100 Oximetry - Reevaluation(s) Reevaluation #1: 03/18/19 09:35 Patient is speaking in full sentences with no signs of distress noted. ED Medical Decision Making - Lab Data Result diagrams: 03/18/19 08:46 03/18/19 08:46 - Medical Decision Making This is a 23-year-old female that presents with bacterial vaginosis, cervical motion tenderness and left pelvic pain. Patient is stable and was examined by me. Labs are unremarkable. Urine obtained. Gonorrhea chlamydia pending. Patient did receive 1 g of Rocephin. Ultrasound Doppler pelvic has been obtained and negative dictated by radiologist. Patient is notified of the results with no questions noted by the patient. Patient be discharged with Flagyl and Bactrim. Patient was instructed to Follow-up with a primary care doctor in 3-5 days or if symptoms worsen and continue return to emergency room as soon as possible. At time of discharge, the patient does not seem toxic or ill in appearance. No acute signs of distress noted. Patient agrees to discharge treatment plan of care. No further questions noted by the patient. Critical care attestation.: If time is entered above; I have spent that time in minutes in the direct care of this critically ill patient, excluding procedure time. ED Disposition Clinical Impression: Bacterial vaginosis, Cervical motion tenderness, Pelvic pain UTI (urinary tract infection) Qualifiers: Urinary tract infection type: site unspecified Hematuria presence: without hematuria Qualified Code(s): N39.0 - Urinary tract infection, site not specified Disposition: TO HOME OR SELFCARE Is pt being admited?: No Does the pt Need Aspirin: No Condition: Stable Instructions: Bacterial Vaginosis (ED), Metronidazole (By mouth) Additional Instructions: Follow-up with a primary care doctor in 3-5 days or if symptoms worsen and continue return to emergency room as soon as possible. Do not consume any alcohol while taking antibiotics. Prescriptions: Sulfamethoxazole/Trimethoprim [Bactrim DS TAB] 1 each PO BID #14 tablet metroNIDAZOLE [Flagyl] 500 mg PO Q12HR #14 tab Ibuprofen [Motrin] 600 mg PO Q8H PRN #20 tablet PRN Reason: Pain Referrals: PRIMARY MD SILVINO [Primary Care Provider] - 3-5 Days ARMANDO HUGHES MD [Staff Physician] - 3-5 Days [facility] [Outside] - 3-5 Days Forms: Work/School Release Form(ED)
[2019-03-18] MEDS ORDERED: AZITHROMYCIN 250 MG TAB PO ONE (10:03)
--- NOTE | 2019-03-18 10:36 | Ultrasound Report ---
Pelvic ultrasound complete INDICATION: Pelvic pain FINDINGS: Transabdominal and transvaginal imaging is performed. Uterus measures 9.9 cm in length. Endometrial stripe measures 11 mm. The right ovary measures 2.8 cm and the left ovary measures 2.4 cm. There are no adnexal masses. There is no free fluid. IMPRESSION: Pelvic ultrasound is within normal limits. Signer Name: Narinder Yeboah MD Signed: 03/18/2019 10:32 AM Workstation Name: [email or web address]
[2019-03-18 11:26] VITALS: BP 120/70
== END 2019-03-18 11:28 | disposition home or self-care (01) ==
LOC: ED 07:51
DX: N76.0 Acute vaginitis (principal); N39.0 Urinary tract infection, site not specified; F17.200 Nicotine dependence, unspecified, uncomplicated; Z88.0 Allergy status to penicillin
CPT/HCPCS: 36415; 76830; 80053; 81001; 83690; 84703; 85025; 87210; 87591; 93975; 96374; 96375; 99285; J2270; J2405; J7030

== ENCOUNTER 2020-01-04 11:45 | Outpatient (CLI) | payer MEDICAID ==
[2020-01-04 12:16] VITALS: BP 100/63
--- NOTE | 2020-01-04 15:22 | Ultrasound Report ---
ULTRASOUND OBSTETRIC, 08/04/2019 CLINICAL INFORMATION/INDICATION: Evaluate for gestational age. Possible growth restriction. COMPARISON: No prior studies are available for comparison. FINDINGS: There is a single intrauterine . BPD = 8.1 cm = 32 weeks, 3 day(s). Head circumference = 28 cm = 30 weeks, 5 day(s). Abdominal circumference = 27.9 cm = 32 weeks, 0 day(s). Femur length = 5.8 cm = 30 weeks, 3 day(s). Overall estimated sonographic age = 31 weeks, 3 day(s). heart rate is 149 beats per minute. Estimated weight is 1756 grams. position is cephalic. Placenta is anterior and grade 2 . Amniotic fluid volume appears normal. Impression: 1. Single living intrauterine with estimated sonographic age of 31 weeks, 3 day(s). Signer Name: Aracelis Meng MD Signed: 01/04/2020 3:17 PM Workstation Name: [id number]
--- NOTE | 2020-01-04 15:23 | Ultrasound Report ---
ULTRASOUND BIOPHYSICAL PROFILE INDICATION / CLINICAL INFORMATION: Evaluate gestational age. Possible growth restriction. COMPARISON: Obstetrical ultrasound, 01/04/2020. No previous prior studies are available for comparison. FINDINGS: BREATHING MOVEMENT = 2 GROSS BODY MOVEMENT = 2 TONE = 2 QUALITATIVE AMNIOTIC FLUID VOLUME = 2 TOTAL BIOPHYSICAL SCORE = 8/8 AMNIOTIC FLUID INDEX (cm) = 8.6 PRESENTATION: Cephalic. HEART RATE (beats per minute): 149 IMPRESSION: 1. biophysical profile = 11/08 Signer Name: Arcaelis Meng MD Signed: 01/04/2020 3:19 PM Workstation Name: [id number]
--- NOTE | 2020-01-04 15:27 | Ultrasound Report ---
ULTRASOUND OB VELOCIMETRY UMBILICAL ARTERY HISTORY: Possible intrauterine growth restriction. TECHNIQUE: Transabdominal ultrasound with color and spectral Doppler imaging COMPARISON: Obstetrical ultrasound, 01/04/2020. No previous prior studies are available for comparison FINDINGS: 3 segments of the umbilical cord were evaluated. heart rate measures 149 bpm. The spectral wave forms are normal and persistent. Average S/D ratio measures: 3.4 Average resistive index measures: 0.7 Signer Name: Aracelis Meng MD Signed: 01/04/2020 3:23 PM Workstation Name: [id number]
[2020-01-04] MEDS ORDERED: HYDROcodone/ACETAMINOPHEN 10-325MG TAB PO PRN (15:29)
== END 2020-01-04 19:27 | disposition home or self-care (01) ==
LOC: TRG 11:45 → APU 11:45 → TRG 19:27
PROVIDERS: ATTEND Obstetrics & Gynecology
DX: O47.1 False labor at or after 37 completed weeks of gestation (principal); Z3A.37 37 weeks gestation of pregnancy
CPT/HCPCS: 59025; 76816; 76819; 76820

== ENCOUNTER 2020-02-18 12:28 | Outpatient (CLI) | payer MEDICAID ==
[2020-02-18 13:52] VITALS: BP 114/74
== END 2020-02-18 17:57 | disposition home or self-care (01) ==
LOC: TRG 12:28 → APU 12:29 → TRG 17:57
PROVIDERS: ATTEND Obstetrics & Gynecology
DX: O47.1 False labor at or after 37 completed weeks of gestation (principal); Z3A.39 39 weeks gestation of pregnancy
CPT/HCPCS: 59025

== ENCOUNTER 2020-02-20 14:17 | Inpatient (IN) | payer MEDICAID ==
[2020-02-20] MEDS ORDERED: TERBUTALINE 1 MG/1 ML INJ SUB-Q PRN (16:40)
[2020-02-20] MEDS ORDERED: fentaNYL 100 MCG/2 ML INJ IV PRN (16:40)
[2020-02-20] MEDS ORDERED: ePHEDrine SULFATE 50 MG/1 ML INJ IV PRN (16:40)
[2020-02-20] MEDS ORDERED: BUTORPHANOL 2 MG/1 ML INJ IV PRN (16:40)
[2020-02-20] MEDS ORDERED: AMPICILLIN/NS 2 GM/100 ML 2 GM/100 ML BAG IV ONE (16:40)
[2020-02-20] MEDS ORDERED: LIDOCAINE (2%) 20 MG/1 ML VIAL 20 ML MDV INFILTRATI ONE (16:40)
[2020-02-20] MEDS ORDERED: MINERAL OIL 30 ML ORAL LIQD PO PRN (16:40)
[2020-02-20] MEDS ORDERED: OXYTOCIN DRIP 30 UNITS/500 ML BAG IV SCH ×2 (17:00)
[2020-02-20] MEDS ORDERED: LACTATED RINGERS 1,000 ML IV SCH (17:00)
--- NOTE | 2020-02-20 19:01 | History and Physical Report ---
History of Present Illness Date of examination: 02/20/20 Date of admission: 02/20/20 Chief complaint: "I've been leaking vag fluids" Admits to pos FM History of present illness: 24 y/o was sent to [facility] for an IOL r/t an QUIN of 1.5 and uc. Pt states she has been leaking cl vag fluids but is not sure when leakage started. She initiated her pnc at [facility] at 17 wks gestation. 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 Pt reports fractured tail bone with previous deliveries. Pt was referred to [facility] r/t size dates discrepancy, but she did not attend visit. GBS is neg. 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 Family/Genetic History: diabetes, heart disease, hypertension, other (asthma) Social history: no significant social history - Obstetrical History Expected Date of Delivery: 02/22/20 Actual Gestation: 39 Week(s) 5 Day(s) : 3 Para: 2 Hx # Term Pregnancies: 2 Number of Pregnancies: 0 Spontaneous Abortions: 0 Induced : 0 Number of Living Children: 2 Medications and Allergies Allergies Allergy/AdvReac Type Severity Reaction Status Date / Time penicillin Allergy Severe Anaphylaxis Verified 01/04/20 15:31 Home Medications Medication Instructions Recorded Confirmed Last Taken Type Pnv with Ca,No.72/Iron/FA 1 each PO DAILY 04/13/15 01/03/17 3 Days Ago History [ Plus Multivitamin Tab] ~12/31/16 HYDROcodone/APAP 5-325 [[place] 1 each PO Q6HR PRN #7 tablet 01/03/17 Unknown Rx 5/325] Multivitamin with Iron 1 each PO DAILY #30 tablet 01/03/17 Unknown Rx [Multivitamins with Iron] Acetaminophen [Acetaminophen TAB] 500 mg PO Q6HR PRN #30 tablet 04/22/17 Unknown Rx Famotidine [Pepcid] 20 mg PO BID PRN #30 tablet 04/22/17 Unknown Rx Triamcinolone Acetonide 15 gm TP TID #15 oint...g. 02/15/18 Unknown Rx [Triamcinolone Acetonide Oint 0.5%] Ibuprofen [Motrin 600 MG tab] 600 mg PO Q8H PRN #30 tablet 03/25/18 Unknown Rx guaiFENesin [Robitussin] 200 mg PO Q6HR #20 tablet 03/25/18 Unknown Rx Ibuprofen [Motrin 800 MG tab] 800 mg PO Q8HR PRN #12 tablet 04/02/18 Unknown Rx Sulfamethoxazole/Trimethoprim 1 each PO BID #14 tablet 04/02/18 Unknown Rx [Bactrim DS TAB] traMADoL [Ultram 50 MG tab] 50 mg PO Q6HR PRN #10 tablet 04/05/18 Unknown Rx Ibuprofen [Motrin] 600 mg PO Q8H PRN #20 tablet 03/18/19 Unknown Rx Sulfamethoxazole/Trimethoprim 1 each PO BID #14 tablet 03/18/19 Unknown Rx [Bactrim DS TAB] metroNIDAZOLE [Flagyl] 500 mg PO Q12HR #14 tab 03/18/19 Unknown Rx Active Meds: Active Medications Butorphanol Tartrate (Stadol) 2 mg IV Q2H PRN PRN Reason: Pain , Severe (7-10) Ephedrine Sulfate (Ephedrine Sulfate) 10 mg IV Q2M PRN PRN Reason: Hypotension Fentanyl (Sublimaze) 100 mcg IV Q2H PRN PRN Reason: Pain,Severe (7-10) LABOR PAIN Oxytocin/Sodium Chloride (Pitocin/Ns 30 Unit/500ml) 30 units in 500 mls @ 2 mls/hr IV TITR AARON; Protocol Last Admin: 02/20/20 17:18 Dose: 2 mls/hr, 2 mls/hr Documented by: Lactated Ringer's (Lactated Ringers) 1,000 mls @ 125 mls/hr IV DIRECT AARON Last Admin: 02/20/20 17:18 Dose: 125 mls/hr Documented by: Oxytocin/Sodium Chloride (Pitocin/Ns 30 Unit/500ml) 30 units in 500 mls @ 40 m ls/hr IV TITR AARON; Protocol Clindamycin HCl (Cleocin 900 Mg/50 Ml) 900 mg in 50 mls @ 100 mls/hr IV Q8HR AARON; Protocol Mineral Oil (Mineral Oil) 30 ml PO QHS PRN PRN Reason: Constipation Terbutaline Sulfate (Brethine) 0.25 mg SUB-Q ONCE PRN PRN Reason: Hyperstimulation/Hypertonicity Review of Systems All systems: negative Eyes: deferred Ears, nose, mouth and throat: deferred Breasts: normal Genitourinary: normal appearance Rectal Exam: deferred - Vital Signs Vital signs: Vital Signs Pulse BP 93 H 112/75 02/20/20 15:09 02/20/20 15:09 Temp Pulse Resp BP Pulse Ox 98.2 F 93 H 112/75 02/20/20 17:19 02/20/20 15:09 02/20/20 15:09 - Physical Exam Breasts: Positive: normal Cardiovascular: Regular rate Lungs: Positive: Clear to auscultation Abdomen: Positive: normal appearance, soft, normal bowel sounds, other (gravid) Genitourinary (Female): Positive: normal external genitalia, normal perenium Vulva: both: normal Vagina: Positive: normal moisture Uterus: Positive: enlarged, normal contour, other (gravid) Adnexa: both: normal Anus/Rectum: Positive: normal perianal skin Extremities: Positive: normal - Obstetrical FHR: auscultation normal, category 1 Uterine Contraction Monitor Mode: External Cervical Dilatation: 4 Cervical Effacement Percentage: 60 station: -3 Uterine Contraction Pattern: Irregular Uterine Tone Measurement Phase: Resting Uterine Contraction Intensity: Mild Results All other labs normal. Assessment and Plan A: IUP@39.5 wks Anemia, HSV II, SPROM cl fluid S< D, Oligo Pos DS per Quad screen; Panorama low risk- Refused [facility] appoint Hx of tailbone fx with previous deliveries P: Admit to L&D for Pitocin augmentation Continuous monitoring Pain med/Epidural prn Clindamycin q 8hr Anticipate - Patient Problems (1) HSV (herpes simplex virus) anogenital infection Current Visit: Yes Status: Acute (2) Size of fetus inconsistent with dates in third trimester Current Visit: Yes Status: Acute (3) SPROM (prolonged spontaneous rupture of membranes) Current Visit: Yes Status: Acute (4) Oligohydramnios Current Visit: Yes Status: Acute
[2020-02-20 19:15] LABS: Hematocrit 35.7 % (30.3-42.9); Hemoglobin 12.5 gm/dl (10.1-14.3); Mean Corpuscular HGB Conc 35 % (30-34); Mean Corpuscular Volume 90 fl (79-97); Platelet Count 173 K/mm3 (140-440); Red Blood Count 3.99 M/mm3 (3.65-5.03); Red Cell Distribution Width 14.4 % (13.2-15.2)
[2020-02-20] MEDS ORDERED: fentaNYL-BUPIV 2 MCG/ML-0.125% 0 MCG/0 ML BAG EPIDURAL ONE (20:20)
[2020-02-20] MEDS ORDERED: AMPICILLIN/NS 1 GM/50 ML 1 GM/50 ML BAG IV SCH (20:41)
[2020-02-20] MEDS ORDERED: PROMETHAZINE 25 MG TAB PO PRN (20:55)
[2020-02-20] MEDS ORDERED: ONDANSETRON 4 MG/2 ML INJ IV PRN (20:55)
[2020-02-20] MEDS ORDERED: WITCH HAZEL/ GLYCERIN PAD TP PRN (20:55)
[2020-02-20] MEDS ORDERED: MAGNESIUM HYDROXIDE (MOM) ORAL LIQD UDC PO PRN (20:55)
[2020-02-20] MEDS ORDERED: PROMETHAZINE 25 MG RECT SUPP PR PRN (20:55)
[2020-02-20] MEDS ORDERED: LANOLIN/ZINC/DIMETHICONE (LANSINOH) 7 GM TP PRN (20:55)
[2020-02-20] MEDS ORDERED: diphenhydrAMINE 25 MG CAP PO PRN (20:55)
--- NOTE | 2020-02-20 21:19 | Procedure Note ---
OB Delivery Note - Vaginal Delivery presentation: vertex Delivery position: OA Intrapartum events: PROM->1hr before delivery, meconium Delivery induction: none Delivery augmentation: pitocin Delivery monitor: external FHT, external uterine Route of delivery: Delivery placenta: spontaneous Delivery cord: 3 umbilical vessels Episiotomy: none Delivery laceration: none Anesthesia: none Delivery comments: Called to for delivery. SVE 10/100%/+1 and pt was pushing. of a viable live mec stained male in OA position. Spontaneous delivery of head and shoulders. Infant was immediately placed on mom's chest for bonding while nurse dried and stimulated baby. Delayed cord clamping x 90 sec then cord was clamped times 2 and FOB was allowed to cut the cord. Afterwards was given to awaiting NICU nurse. 8/9. Spontaneous delivery of intact placenta with CVX3. FF@ U3 with fundal massage and IV pitocin. Exploration of tears revealed none. EBL 50 cc. Mom and baby stable. FW 2572 Gms. Placenta was sent to pathology r/t SINTIA. - A at 1 minute: 8 at 5 minutes: 9 Gender: Male (FW 2572 GMS)
[2020-02-21] MEDS: IBUPROFEN 600 MG TAB PO SCH ×4 (00:33→18:29)
[2020-02-21 09:47] LABS: Hemoglobin 11.2 gm/dl (10.1-14.3)
[2020-02-21] MEDS ORDERED: PRENATAL VIT27-FE FUMARATE-FOLIC ACID VIT TAB PO SCH (10:00)
[2020-02-21] MEDS ORDERED: [UNRECOGNIZED DRUG - REMARK] PO SCH (10:00)
--- NOTE | 2020-02-21 11:42 | Discharge Summary ---
Providers - Providers Date of Admission: 02/20/20 20:55 Date of discharge: 02/21/20 Attending physician: HUGH OLIVER Primary care physician: HUGH OLIVER Hospitalization Reason for admission: induction of labor Delivery: Episiotomy: none Laceration: none Other procedures: none complications: none Discharge diagnosis: IUP at term delivered [place] baby: male Hospital course: See admission H & P; OB delivery summary and PP progress notes Condition at discharge: Good Disposition: DC-01 TO HOME OR SELFCARE - Discharge Diagnoses (1) Status post normal vaginal delivery Status: Acute Plan - Provider Discharge Summary Activity: routine, no sex for 6 weeks, no heavy lifting 4 weeks, no strenuous exercise Diet: other (Iron rich diet) Instructions: routine Additional instructions: [] Smoking cessation referral if applicable(refer to patient education folder for contact #) [] Refer to [facility] Booklet Call your doctor immediately for: * Fever > 100.5 * Heavy vaginal bleeding ( >1 pad per hour) * Severe persistent headache * Shortness of breath * Reddened, hot, painful area to leg or breast - Follow up plan Follow up: HUGH OLIVER MD [Primary Care Provider] - 6 Weeks
[2020-02-21 17:43] VITALS: BP 115/65
== END 2020-02-21 21:30 | disposition home or self-care (01) | DRG 774 ==
LOC: TRG 14:17 → LD 14:18 → TRG 20:55 → LD 20:55 → OB 22:37
PROVIDERS: ADMIT Obstetrics & Gynecology; ATTEND Obstetrics & Gynecology
PROC: 10E0XZZ Delivery of Products of Conception, External Approach (ICD-10-PCS; principal; 2020-02-20)
DX: O41.03X0 Oligohydramnios, third trimester, not applicable or unspecified (principal); O98.52 Other viral diseases complicating childbirth; O42.013 Preterm premature rupture of membranes, onset of labor within 24 hours of rupture, third trimester; A60.00 Herpesviral infection of urogenital system, unspecified; Z20.828 Contact with and (suspected) exposure to other viral communicable diseases; O77.0 Labor and delivery complicated by meconium in amniotic fluid; Z3A.39 39 weeks gestation of pregnancy; Z37.0 Single live birth; Z83.3 Family history of diabetes mellitus; Z82.49 Family history of ischemic heart disease and other diseases of the circulatory system; Z88.0 Allergy status to penicillin
CPT/HCPCS: 36415; 59025; 85014; 85018; 85027; 86850; 86900; 86901; 88307; G0378; J2590; J3010; J7120; U0003

== ENCOUNTER 2021-01-16 18:21 | Outpatient (CLI) | payer MEDICAID ==
[2021-01-16 18:55] VITALS: BP 116/55
[2021-01-16 19:55] LABS: Bacteria,Urine 1+ /HPF (Negative); Bilirubin,Urine NEG (Negative); Blood,Urine NEG (Negative); Color,Urine Yellow (Yellow); Mucus,Urine 3+ /HPF
== END 2021-01-16 20:30 | disposition home or self-care (01) ==
LOC: TRG 18:21 → APU 18:22 → TRG 20:30
PROVIDERS: ATTEND Obstetrics & Gynecology
DX: Z34.93 Encounter for supervision of normal pregnancy, unspecified, third trimester (principal); Z3A.37 37 weeks gestation of pregnancy
CPT/HCPCS: 81001

== ENCOUNTER 2021-02-07 15:45 | Inpatient (IN) | payer MEDICAID ==
[2021-02-07] MEDS ORDERED: miSOPROStol 200 MCG TAB PR PRN (16:51)
[2021-02-07] MEDS ORDERED: METHYLERGONOVINE MALEATE 0.2 MG/ML VIAL IM PRN (16:51)
[2021-02-07] MEDS ORDERED: BUTORPHANOL 2 MG/1 ML INJ IV PRN (16:51)
[2021-02-07] MEDS ORDERED: ACETAMINOPHEN 325 MG TAB PO PRN (16:51)
[2021-02-07] MEDS ORDERED: CARBOPROST TROMETHAMINE 250 MCG/1 ML INJ IM PRN (16:51)
[2021-02-07] MEDS ORDERED: TERBUTALINE 1 MG/1 ML INJ SUB-Q PRN (16:51)
[2021-02-07] MEDS ORDERED: ePHEDrine SULFATE 50 MG/1 ML INJ IV PRN (16:51)
[2021-02-07] MEDS ORDERED: LOPERAMIDE 2 MG CAP PO PRN (16:51)
[2021-02-07] MEDS ORDERED: OXYTOCIN 10 UNIT/1 ML INJ IM PRN (16:51)
[2021-02-07] MEDS ORDERED: fentaNYL 100 MCG/2 ML INJ IV PRN (16:51)
[2021-02-07] MEDS ORDERED: MINERAL OIL 30 ML ORAL LIQD PO PRN (16:51)
--- NOTE | 2021-02-07 16:56 | History and Physical Report ---
History of Present Illness Date of examination: 02/07/21 Date of admission: 02/07/2021 Chief complaint: 25 year old presents with complaint of contractions since late last night. Patient denies vaginal bleeding or leaking of water. Patient states she lost her mucous plug. Patient reports active movement. Patient received care at [facility]. records are available. LMP 05/19/20. EDC 02/06/2021 (based on ultrasound). significant for the following: anemia (supplemented with iron); closely spaced pregnancies; gap in care due to hospitalized child (her youngest child had to have a liver transplant); slow weight gain, genital herpes (has been on Valtrex suppression and denies lesions or prodromal symptoms). labs are as follows: O+, antibody screen negative, rubella immune, HIV negative, hepatitis B surface antigen negative, RPR nonreactive, gonorrhea negative, chlamydia negative, trichomonas negative, materniT 21 negative, 1 hour sugar test 126, GBS unknown. Past History Past Medical History: other (genital herpes) Past Surgical History: other (foot surgery after accident with a dog stake) [facility] [facility] History: herpes (HSV 2 positive; has been taking Valtrex for suppression; denies lesions or prodromal symptoms). denies: chlamydia, gonorrhea, hepatitis B, hepatitis C, HIV, syphilis, trichomonas Family/Genetic History: diabetes, hypertension, other (asthma, hyperlipidemia, son had a liver transplant) Social history: lives with family, full code. denies: smoking, alcohol abuse, prescription drug abuse, IV drug use - Obstetrical History Expected Date of Delivery: 02/06/21 Actual Gestation: 40 Week(s) 1 Day(s) : 4 Para: 3 Hx # Term Pregnancies: 3 Number of Pregnancies: 0 Spontaneous Abortions: 0 Induced : 0 Number of Living Children: 3 Medications and Allergies Allergies Allergy/AdvReac Type Severity Reaction Status Date / Time penicillin Allergy Severe Anaphylaxis Verified 01/04/20 15:31 Home Medications Medication Instructions Recorded Confirmed Last Taken Type Pnv with Ca,No.72/Iron/FA 1 each PO DAILY 04/13/15 02/20/20 3 Days Ago History [ Plus Multivitamin Tab] ~12/31/16 Active Meds: Active Medications Acetaminophen (Acetaminophen 325 Mg Tab) 650 mg PO Q4H PRN PRN Reason: Pain, Mild (1-3) Butorphanol Tartrate (Butorphanol 2 Mg/1 Ml Inj) 1 mg IV Q2H PRN PRN Reason: Pain, Moderate(4-6) LABOR PAIN Carboprost Tromethamine (Carboprost Tromethamine 250 Mcg/1 Ml Inj) 250 mcg IM ONCE PRN PRN Reason: Uterine Bleeding Ephedrine Sulfate (Ephedrine Sulfate 50 Mg/1 Ml Inj) 10 mg IV Q2M PRN PRN Reason: Hypotension Fentanyl (Fentanyl 100 Mcg/2 Ml Inj) 100 mcg IV Q2H PRN PRN Reason: Pain,Severe (7-10) LABOR PAIN Oxytocin/Sodium Chloride (Pitocin/Ns 30 Unit/500ml) 30 units in 500 mls @ 2 mls/hr IV TITR AARON; Protocol Lactated Ringer's (Lactated Ringers) 1,000 mls @ 125 mls/hr IV DIRECT AARON Oxytocin/Sodium Chloride (Pitocin/Ns 30 Unit/500ml) 30 units in 500 mls @ 40 mls/hr IV TITR AARON; Protocol Vancomycin HCl (Vancomycin/Ns 1 Gm/250 Ml) 1 gm in 250 mls @ 167.007 mls/hr IV Q12H AARON; Protocol Lidocaine (Lidocaine (2%) 20 Mg/1 Ml Vial 20 Ml Mdv) 20 ml INFILTRATI ONCE ONE Stop: 02/07/21 16:52 Loperamide HCl (Loperamide 2 Mg Cap) 2 mg PO ONCE PRN PRN Reason: give with Hemabate Methylergonovine Maleate (Methylergonovine Maleate 0.2 Mg/Ml Vial) 0.2 mg IM ONCE PRN PRN Reason: Uterine Bleeding Mineral Oil (Mineral Oil 30 Ml Oral Liqd) 30 ml PO QHS PRN PRN Reason: Constipation Misoprostol (Misoprostol 200 Mcg Tab) 800 mcg TN ONCE PRN PRN Reason: Uterine Bleeding Oxytocin (Oxytocin 10 Unit/1 Ml Inj) 10 unit IM ONCE PRN PRN Reason: Uterine Bleeding Terbutaline Sulfate (Terbutaline 1 Mg/1 Ml Inj) 0.25 mg SUB-Q ONCE PRN PRN Reason: Hyperstimulation/Hypertonicity Review of Systems All systems: negative (contractions) - Vital Signs Vital signs: Vital Signs Pulse BP 83 110/68 02/07/21 16:30 02/07/21 16:30 Temp Pulse Resp BP Pulse Ox 98.3 F 73 18 110/68 99 02/07/21 16:34 02/07/21 16:52 02/07/21 16:34 02/07/21 16:34 02/07/21 16:52 - Physical Exam Abdomen: Positive: normal appearance, soft, normal bowel sounds. Negative: distention, tenderness, guarding, rigidity Genitourinary (Female): Positive: normal external genitalia, normal perenium. Negative: perineal/vulvar lesions (no lesions seen on careful exam upon admission) Vagina: Positive: normal moisture Uterus: Positive: enlarged. Negative: tender Anus/Rectum: Positive: normal perianal skin Extremities: Negative: tenderness, edema - Obstetrical FHR: category 2 FHR comments: Several brief variable FHR decelerations with rapid return to baseline Uterine Contraction Monitor Mode: External Cervical Dilatation: 5 Cervical Effacement Percentage: 70 station: -3 Uterine Contraction Pattern: Regular Uterine Contraction Intensity: Moderate Results All other labs normal. Assessment and Plan A: at 40 weeks, 1 day gestation. Labor. GBS unknown. HSV 2 positive; on Valtrex suppression. P: Admit. Continuous monitoring. GBS prophylaxis. Continue Valtrex suppression of HSV.
[2021-02-07] MEDS ORDERED: OXYTOCIN DRIP 30 UNITS/500 ML BAG IV SCH ×2 (17:00)
[2021-02-07] MEDS ORDERED: VANCOMYCIN/NS 1 GM/250 ML 1 GM/250 ML BAG IV SCH (17:00)
[2021-02-07] MEDS ORDERED: LACTATED RINGERS 1,000 ML IV SCH (17:00)
[2021-02-07] MEDS ORDERED: valACYclovir 500 MG TAB PO SCH (17:38)
[2021-02-07] MEDS ORDERED: LIDOCAINE (2%) 20 MG/1 ML VIAL 20 ML MDV INFILTRATI ONE (18:00)
[2021-02-07 18:07] LABS: Hematocrit 37.7 % (30.3-42.9); Hemoglobin 12.5 gm/dl (10.1-14.3); Mean Corpuscular HGB Conc 33 % (30-34); Mean Corpuscular Volume 84 fl (79-97); Platelet Count 173 K/mm3 (140-440); Red Blood Count 4.47 M/mm3 (3.65-5.03)
[2021-02-07 18:24] LABS: Alanine Aminotransferase 12 units/L (7-56); Albumin 3.8 g/dL (3.9-5); Blood Urea Nitrogen 8 mg/dL (7-17); Hemolysis Index 8
[2021-02-07 18:29] LABS: BUN/Creatinine Ratio 16
--- NOTE | 2021-02-08 01:35 | Event Note ---
Date: 02/08/212.
[2021-02-08] MEDS ORDERED: ONDANSETRON 4 MG/2 ML INJ ONE (04:18)
[2021-02-08] MEDS ORDERED: ONDANSETRON 4 MG/2 ML INJ IV PRN (04:28)
[2021-02-08] MEDS ORDERED: diphenhydrAMINE 50 MG/ML VIAL IV PRN (04:28)
[2021-02-08] MEDS ORDERED: NalbUPHINE 10 MG/1 ML INJ IV PRN (04:28)
[2021-02-08] MEDS ORDERED: ePHEDrine SULFATE 50 MG/1 ML INJ IV PRN (04:28)
[2021-02-08] MEDS ORDERED: NALOXONE 2 MG/2 ML INJ IV PRN (04:28)
[2021-02-08] MEDS ORDERED: LACTATED RINGERS 250 ML IV SOLN IV ONE (04:28)
--- NOTE | 2021-02-08 04:57 | Anesthesia Consultation ---
Anesthesia Consult and Med Hx Date of service: 02/08/21 - Airway Anesthetic Teeth Evaluation: Good ROM Head & Neck: Adequate Mental/Hyoid Distance: Adequate Mallampati Class: Class II Intubation Access Assessment: Probably Good - Pulmonary Exam CTA: Yes - Cardiac Exam Cardiac Exam: RRR - Pre-Operative Health Status ASA Pre-Surgery Classification: ASA2 Proposed Anesthetic Plan: Epidural - Pulmonary Hx Smoking: No Hx Asthma: No COPD: No Hx Pneumonia: No Hx Sleep Apnea: No - Cardiovascular System Hx Hypertension: No Hx Heart Attack/AMI: No Hx Angina: No - Central Nervous System Hx Seizures: No Hx Psychiatric Problems: No - Gastrointestinal Hx Gastroesophageal Reflux Disease: No - Endocrine Hx Renal Disease: No Hx End Stage Renal Disease: No Hx Liver Disease: No Hx Insulin Dependent Diabetes: No Hx Non-Insulin Dependent Diabetes: No Hx Hypothyroidism: No Hx Hyperthyroidism: No - Hematic Hx Anemia: No Hx Sickle Cell Disease: No - Other Systems Hx Alcohol Use: No
--- NOTE | 2021-02-08 04:58 | Progress Note ---
Labor Epidural - Labor Epidural Start Time: 04:36 Stop Time: 04:48 Performed by:: CEZAR ZHAO Procedure: Patient is requesting epidural for labor and pain. H&P, labs were reviewed. Patient IDed, H&P reviewed, all questions and concerns were answered, and consent was signed. Timeout was performed at bedside. Patient in sitting position. Sterile prep and drape was performed. 3ml of 1% lidocaine skin wheal at L[3]- L [4]. 17-gauge Tuohy epidural needle was advanced to loss of resistance with air technique 7cm. Negative CSF negative blood. Epidural catheter advanced to [12] centimeters. [negative] Aspiration [negative] test dose. Sterile dressing applied. Patient tolerated procedure.
[2021-02-08] MEDS ORDERED: fentaNYL-BUPIV 2 MCG/ML-0.125% 200 MCG/100 ML BAG EPIDURAL SCH (05:00)
--- NOTE | 2021-02-08 06:39 | Procedure Note ---
OB Delivery Note - Delivery Date of Delivery: 02/08/21 Surgeon: KANDACE GUAMAN Estimated blood loss: other (150 cc) - Vaginal Delivery presentation: vertex Delivery position: OA Intrapartum events: none Delivery induction: none Delivery augmentation: rupture of membranes Delivery monitor: external FHT, external uterine Route of delivery: Delivery placenta: spontaneous Delivery cord: 3 umbilical vessels, other (cord around arm) Episiotomy: none Delivery laceration: none Anesthesia: epidural Delivery comments: Spontaneous vaginal delivery at 06:14 of liveborn female infant weighing 5 lb. 9 oz. over intact perineum with apgars of 8/9. Variable FHR decelerations noted just prior to delivery. Baby had cord wrapped around right arm. Baby was vigorous at and cried right away. Baby placed skin to skin with mom immediately after delivery. Spontaneous cry and respirations. Baby suctioned with bulb syringe and dried with warm blankets. 3 vessel cord double clamped and cut and baby taken to radiant warmer for further suctioning. Cord blood obtained. Spontaneous delivery of intact placenta and membranes. EBL 150 cc. Pitocin to IV fluids after delivery of placenta. Fundus firm and midline at 1 FB below umbilicus. Bladder drained with straight cath after delivery. No lacerations noted. Vaginal sweep negative. Sponge count correct. Mother and baby stable.
[2021-02-08] MEDS ORDERED: MAGNESIUM HYDROXIDE (MOM) ORAL LIQD UDC PO PRN (06:40)
[2021-02-08] MEDS ORDERED: WITCH HAZEL/ GLYCERIN PAD TP PRN (06:40)
[2021-02-08] MEDS ORDERED: LANOLIN/ZINC/DIMETHICONE (LANSINOH) 7 GM TP PRN (06:40)
[2021-02-08] MEDS: IBUPROFEN 600 MG TAB PO SCH ×3 (07:35→18:51)
[2021-02-08 20:41] LABS: Hematocrit 33.4 % (30.3-42.9); Hemoglobin 11.2 gm/dl (10.1-14.3)
[2021-02-09] MEDS: IBUPROFEN 600 MG TAB PO SCH ×3 (01:28→15:25)
[2021-02-09] MEDS: HYDROcodone/ACETAMINOPHEN 5-325 MG TAB PO PRN ×3 (05:50→20:47)
--- NOTE | 2021-02-09 10:46 | Progress Note ---
Assessment and Plan A: S/P p: D/c home today per pt's request Subjective - Subjective Date of service: 02/09/21 Principal diagnosis: S/P Patient reports: appetite normal, voiding normally, pain well controlled, ambulating normally : doing well, bottle feeding Objective - Vital Signs Latest vital signs: Vital Signs Temp Pulse Resp BP Pulse Ox Pulse Ox 02/09/21 07:57 98.0 F 53 L 18 113/60 99 02/09/21 05:50 18 02/09/21 01:28 18 02/09/21 01:20 98.0 F 52 L 20 118/65 100 02/08/21 20:30 98 02/08/21 16:08 98.1 F 67 20 114/67 98 02/08/21 11:17 98.0 F 52 L 20 104/64 100 Intake and Output 02/08/21 02/09/21 02/09/21 22:59 06:59 14:59 Intake Total 360 720 120 Output Total 200 Balance 160 720 120 Intake: Oral 360 720 120 Output: Urine 200 Void 200 Other: Total, Intake Amount 240 240 120 Total, Output Amount 200 # Voids Void 1 - Exam Breasts: Present: normal Abdomen: Present: normal appearance, soft, normal bowel sounds Vulva: both: normal Uterus: Present: normal, firm, fundal height below umbilicus Extremities: Present: normal
--- NOTE | 2021-02-09 10:50 | Discharge Summary ---
Providers - Providers Date of Admission: 02/07/21 16:51 Date of discharge: 02/09/21 Attending physician: ISIDORO BRAR MD Primary care physician: CHAS ROSA JR, MD Hospitalization Reason for admission: active labor, IUP at term Delivery: Episiotomy: none Laceration: none Other procedures: none complications: none Discharge diagnosis: IUP at term delivered baby: female Hospital course: Pt was admitted in active labor and had a w/o pp complications. See H&p, delivery summary, and pp notes. Condition at discharge: Stable Disposition: 01 HOME / SELF CARE / HOMELESS Plan - Discharge Medications Prescriptions: Ibuprofen [Motrin 600 MG tab] 600 mg PO Q6HR PRN #30 tablet PRN Reason: Menstrual Cramps - Provider Discharge Summary Activity: routine, no sex for 6 weeks, no heavy lifting 4 weeks, no strenuous exercise Diet: routine Instructions: routine Additional instructions: [] Smoking cessation referral if applicable(refer to patient education folder for contact #) [] Refer to [facility] Booklet Call your doctor immediately for: * Fever > 100.5 * Heavy vaginal bleeding ( >1 pad per hour) * Severe persistent headache * Shortness of breath * Reddened, hot, painful area to leg or breast * Drainage or odor from incision. * Keep incision clean and dry at all times and follow doctor's instructions regarding bathing/showering - Follow up plan Follow up: CHAS ROSA JR, MD [Primary Care Provider] - 6 Weeks
--- NOTE | 2021-02-09 14:56 | Post Anesthesia Evaluation ---
- Post Anesthesia Evaluation Patient Participated: Yes Airway Patent: Yes Stable Respiratory Function: Yes Nausea/Vomiting: No Temp > 96.8F: Yes Pain Manageable: Yes Adequeate Hydration: Yes Anesthesia Complications: No Block Receding Appropriately: Yes Patient on Ventilator: No
[2021-02-10] MEDS: IBUPROFEN 600 MG TAB PO SCH (02:54)
[2021-02-10] MEDS: HYDROcodone/ACETAMINOPHEN 5-325 MG TAB PO PRN (16:51)
[2021-02-10 17:17] VITALS: BP 111/58
== END 2021-02-10 18:49 | disposition home or self-care (01) | DRG 774 ==
LOC: TRG 15:45 → APU 15:48 → LD 16:51 → TRG 16:51 → LD 17:06 → OB 02-08 08:02
PROVIDERS: ADMIT Obstetrics & Gynecology; ATTEND Obstetrics & Gynecology
PROC: 10E0XZZ Delivery of Products of Conception, External Approach (ICD-10-PCS; principal; 2021-02-08)
PROC: 3E0R3BZ Introduction of Anesthetic Agent into Spinal Canal, Percutaneous Approach (ICD-10-PCS; 2021-02-08)
PROC: 00HU33Z Insertion of Infusion Device into Spinal Canal, Percutaneous Approach (ICD-10-PCS; 2021-02-08)
DX: O76 Abnormality in fetal heart rate and rhythm complicating labor and delivery (principal); O98.52 Other viral diseases complicating childbirth; O69.89X0 Labor and delivery complicated by other cord complications, not applicable or unspecified; Z3A.40 40 weeks gestation of pregnancy; Z37.0 Single live birth; B00.9 Herpesviral infection, unspecified; Z20.822 Contact with and (suspected) exposure to COVID-19; Z88.0 Allergy status to penicillin; Z83.3 Family history of diabetes mellitus; Z82.5 Family history of asthma and other chronic lower respiratory diseases; Z82.49 Family history of ischemic heart disease and other diseases of the circulatory system; Z83.438 Family history of other disorder of lipoprotein metabolism and other lipidemia
CPT/HCPCS: 36415; 80053; 85014; 85018; 85027; 86592; 86850; 86900; 86901; G0378; J2405; J2590; J3370; J7120; U0003